=== PATIENT | female | born 1955 | race Two or more races ===

== ENCOUNTER → 2020-10-13 | Outpatient (CLI) | payer MEDICARE | END | disposition home or self-care (01) | LOC: RAD 16:49 | PROVIDERS: ATTEND Emergency Medicine | DX: N23 Unspecified renal colic (principal) | CPT/HCPCS: 76770 ==

== ENCOUNTER 2020-12-15 09:59 | Emergency (ER) | payer MEDICARE ==
[~2020-12-15] VITALS: Ht 152.4 cm; Wt 60.5 kg
[2020-12-15 10:02] VITALS: BP 97/53
--- NOTE | 2020-12-15 11:35 | NUR ---
medicaid biller: pt from lobby to room 36
--- NOTE | 2020-12-15 12:14 | NUR ---
PA AT BS
--- NOTE | 2020-12-15 12:27 | NUR ---
EMBER HARDY, ULTRASOUND IV AT BS, D/T MULTIPLE PIV ATTEMPTS
[2020-12-15] MEDS ORDERED: SODIUM CHLORIDE 0.9% 1,000ML IVBOLUS ONE (12:30)
[2020-12-15] MEDS ORDERED: SODIUM CHLORIDE FLUSH 10ML SYR IVF ONE (12:30)
[2020-12-15 12:36] LABS: BASOPHILS % (AUTO) 1 % (0-1); EOSINOPHILS % (AUTO) 1 % (1-7); LYMPHOCYTES % (AUTO) 21 % (22-44); MEAN CORPUSCULAR HEMOGLOBIN 26.5 pg (27.0-34.8); MEAN PLATELET VOLUME 8.7 fL (7.4-10.4); MONOCYTES % (AUTO) 5 % (2-9); NEUTROPHILS % (AUTO) 72 % (42-75); PLATELET COUNT 463 x10^3/uL (130-400); RED CELL DISTRIBUTION WIDTH 14.9 % (9.6-15.2)
[2020-12-15 12:37] LABS: MD NO
[2020-12-15 12:48] LABS: ALANINE AMINOTRANSFERASE 27 U/L (12-78); ALBUMIN 4.8 g/dL (3.4-5.0); ANION GAP 12 mmol/L (5-15); CHLORIDE 96 mmol/L (98-107)
[2020-12-15 12:52] LABS: ALKALINE PHOSPHATASE 152 U/L (45-117); BILIRUBIN,TOTAL 0.6 mg/dL (0.2-1.0); TOTAL PROTEIN 9.1 g/dL (6.4-8.2); TROPONIN I < 0.015 ng/mL (0.000-0.045)
--- NOTE | 2020-12-15 13:14 | NUR ---
PT REFUSED MORE PIV ATTEMPTS. NO PIV ACCESS Addendum: 12/15/20 at 1336 by [email or web address] PT REFUSED MORE PIV ATTEMPTS. NO PIV ACCESS. SOLUTION SPEC AWARE
--- NOTE | 2020-12-15 13:29 | NUR ---
PT TO CT
[2020-12-15] MEDS ORDERED: PROMETHAZINE 25 MG/ML, 1ML ONE (14:42)
[2020-12-15] MEDS ORDERED: MAALOX/HYOSCYAMINE/LIDOCAINE 45 ML BTL ONE (14:42)
[2020-12-15 14:57] LABS: MICROSCOPIC INDICATED
--- NOTE | 2020-12-15 15:21 | NUR ---
Patient given discharge instructions and they have confirmed that they understand the instructions. Patient ambulatory with steady gait.
[2020-12-15] MEDS ORDERED: PROMETHAZINE 25 MG/ML, 1ML IM ONE (15:30)
[2020-12-15] MEDS ORDERED: MAALOX/HYOSCYAMINE/LIDOCAINE 45 ML BTL PO ONE (15:30)
== END 2020-12-15 15:22 | disposition home or self-care (01) ==
LOC: ED 14:49
DX: K20.90 Esophagitis, unspecified without bleeding (principal); E86.0 Dehydration; K44.9 Diaphragmatic hernia without obstruction or gangrene; K21.9 Gastro-esophageal reflux disease without esophagitis; I10 Essential (primary) hypertension; E11.9 Type 2 diabetes mellitus without complications; R94.31 Abnormal electrocardiogram [ECG] [EKG]
CPT/HCPCS: 36415; 71045; 74176; 80053; 81001; 84484; 85025; 87086; 93005; 96372; 99285; J2550